=== PATIENT | male | born 1970 | race Caucasian/White ===

== ENCOUNTER 2017-04-27 11:22 | Emergency (ER) | payer MEDICAID, OTHER ==
[~2017-04-27] VITALS: Wt 71.0 kg
[2017-04-27] MEDS ORDERED: ALBUTEROL 0.083% (NEB) 2.5 MG/3 ML AMP INH STA (11:40)
--- NOTE | 2017-04-27 11:58 | ERD ---
ER Documentation Chief Complaint Date/Time DATE: 04/27/17 Chief Complaint Shortness of breath HPI The patient is a 46-year-old male with history of Diabetes Mellitus who presents to the emergency department with complaint of shortness of breath. The patient reports a history of alcoholism and tobacco use, which he stopped approximately 6 years ago. Since, he notes intermittent episodes of shortness of breath that generally lasts 2-3 days. The symptoms tend to resolve on their own. Approximately 3 days ago the patient began to experience recurrent shortness of breath. He denies any chest pain, palpitations, lower extremity edema, calf swelling or calf tenderness. Denies visual changes, diplopia, blurred vision or vision loss. Denies abdominal pain, nausea, vomiting, diaphoresis. Denies headache, dizziness, weakness. Denies any known history of anemia, CHF, COPD, asthma. Denies any associated fevers, rhinorrhea, nasal congestion, cough. Denies any exogenous estrogen or hormonal use. Denies recent travel, recent surgery, prolonged period of immobilization or history of cancer. Denies history of DVT/PE. No other complaints at this time. ROS All systems reviewed and are negative except as per history of present illness. Medications Home Meds Active Scripts Albuterol Sulfate* (Proair HFA*) 8.5 Gm Hfa.aer.ad, 2 PUFF INH Q6H Y for WHEEZING AND SOB, #1 INHALER Prov:KELLY SEVILLA PA-C 04/27/17 Allergies Allergies: Coded Allergies: No Known Allergy (Unverified , 04/27/17) PMhx/Soc Medical and Surgical Hx: pt denies Surgical Hx History of Surgery: No Anesthesia Reaction: No Hx Neurological Disorder: No Hx Respiratory Disorders: No Hx Cardiac Disorders: No Hx Psychiatric Problems: No Hx Miscellaneous Medical Probl: Yes (Diabetes) Hx Alcohol Use: No Hx Substance Use: No Hx Tobacco Use: No Smoking Status: Never smoker Physical Exam Vitals Vital Signs Date Time Temp Pulse Resp B/P Pulse Ox O2 Delivery O2 Flow Rate FiO2 04/27/17 13:49 98.2 80 18 115/68 99 Room Air 04/27/17 12:07 87 18 96 21 04/27/17 11:25 98.5 83 21 143/74 98 Physical Exam GENERAL: Well-developed, well-nourished, in no acute distress HEENT: Head is normocephalic, atraumatic. No scleral pallor or icterus. Pupils equal, round and reactive to light. Extraocular movements intact. Conjunctiva pink. Bilaterally tympanic membranes are clear with no evidence of erythema, effusion or dulling of the light reflex. Moist mucous membranes. No pharyngeal erythema or exudates. Uvula is midline. NECK: Supple. No masses, no tenderness, no lymphadenopathy. Trachea midline. No nuchal rigidity. Full range of motion. RESPIRATORY: Mildly decreased breath sounds at the bases, otherwise clear to auscultation bilaterally. No rales, rhonchi or wheezing. Normal expiratory effort. No accessory muscle use. No tachypnea. No stridor. Speaking in full sentences. In no acute respiratory distress. CARDIOVASCULAR: Regular rate and rhythm. S1 and S2 normal. No murmurs, rubs, or gallops. GASTROINTESTINAL: Abdomen is soft, nontender, and nondistended. BACK: No midline tenderness. EXTREMITIES: No clubbing, cyanosis, or edema. Normal skin perfusion. Full range of motion of both the upper and lower extremities bilaterally. Muscle tone is normal. No focal swelling or erythema. No lower extremity edema. No calf swelling or calf tenderness. Distal pulses are palpable, 2+ bilaterally. Capillary refill is less than 2 seconds. NEUROLOGIC: The patient is alert, awake, and oriented x 3. No focal neurologic deficits. Cranial nerves are grossly intact. Gait is observed and normal. There is no ataxia. Motor normal in all extremities. Sensation grossly intact. INTEGUMENT: Skin is clean, dry and intact. No rashes, lesions or petechiae present. Normal turgor. PSYCHIATRIC: Appropriate; Cooperative. Result Diagram: 04/27/17 1156 04/27/17 1156 Results 24 hrs Laboratory Tests Test 04/27/17 11:56 White Blood Count 9.010^3/ul Red Blood Count 4.3910^6/ul Hemoglobin 14.2g/dl Hematocrit 41.7% Mean Corpuscular Volume 95.0fl Mean Corpuscular Hemoglobin 32.3pg Mean Corpuscular Hemoglobin Concent 34.1g/dl Red Cell Distribution Width 11.8% Platelet Count 16893^3/UL Mean Platelet Volume 10.1fl Neutrophils % 49.5% Lymphocytes % 36.9% Monocytes % 8.0% Eosinophils % 4.7% Basophils % 0.7% Nucleated Red Blood Cells % 0.0/100WBC Neutrophils # 4.410^3/ul Lymphocytes # 3.310^3/ul Monocytes # 0.710^3/ul Eosinophils # 0.410^3/ul Basophils # 0.110^3/ul Nucleated Red Blood Cells # 0.010^3/ul Prothrombin Time 12.4Sec Prothrombin Time Ratio 1.0 INR International Normalized Ratio 0.92 Activated Partial Thromboplast Time 31.1Sec D-Dimer 391.20ng/ml D-Dimer Comment Sodium Level 142mmol/L Potassium Level 4.4mmol/L Chloride Level 102mmol/L Carbon Dioxide Level 28mmol/L Anion Gap 16 Blood Urea Nitrogen 14mg/dl Creatinine 0.98mg/dl Glucose Level 149mg/dl Calcium Level 9.6mg/dl Total Bilirubin 0.4mg/dl Direct Bilirubin 0.00mg/dl Indirect Bilirubin 0.4mg/dl Aspartate Amino Transf (AST/SGOT) 27IU/L Alanine Aminotransferase (ALT/SGPT) 36IU/L Alkaline Phosphatase 110IU/L Troponin I < 0.012ng/ml B-Type Natriuretic Peptide 19PG/ML Total Protein 7.6g/dl Albumin 4.4g/dl Globulin 3.20g/dl Albumin/Globulin Ratio 1.37 Current Medications Medications (Trade) Dose Ordered Sig/Oksana Route PRN Reason Start Time Stop Time Status Last Admin Dose Admin Albuterol (Proventil 0.083% (Neb)) 2.5 mg ONCE STAT INH 04/27/17 11:40 04/27/17 11:42 DC 04/27/17 12:07 Procedures/MDM DIAGNOSTIC TESTS AND INTERPRETATION: EKG Reviewed and interpreted by: Dr. Chapa EKG Interpretation: Normal sinus rhythm, rate 66 bpm, nonspecific ST/T-wave changes, T-wave inversion III PROCEDURE: XR Chest. CLINICAL INDICATION: Shortness of breath TECHNIQUE: Chest AP portable. COMPARISON: No comparison available. FINDINGS: The mediastinal structures are unremarkable. The heart is normal in size and configuration. The pulmonary vascularity is normal. The lung diaz are unremarkable. No consolidation is identified. The pleural spaces are unremarkable. The axial skeleton is unremarkable. IMPRESSION: No active intrathoracic disease. .Enrique Devlin MD, Date Time Electronically viewed and signed by .Enrique Devlin MD, MD on 04/27/2017 12:23 EMERGENCY DEPARTMENT COURSE: The patient was stable throughout the ED course. EKG, chest x-ray and laboratory testing performed. The patient was given an Albuterol breathing treatment by respiratory therapy. On reevaluation, the patient reports no new complaints, but states that he is feeling significantly improved with no current shortness of breath following the treatment. Given resolution, suspect possible reactive airway disease association. MEDICAL DECISION MAKING: This is a 46-year-old male with history of diabetes mellitus and smoking history (who quit 6 years ago) presenting to the emergency department with complaint of shortness of breath. He was placed in a room and monitored. Lung examination revealed mildly decreased breath sounds at the bases, but otherwise, no rales, no rhonchi, no wheezing. He had no nasal flaring , no retractions, no accessory muscle use, no signs of respiratory distress. Chest x-ray performed, with no acute cardiopulmonary abnormalities identified. EKG with no findings of STEMI or acute ischemic changes. Laboratory testing with no anemia, no leukocytosis, no significant electrolyte abnormalities. Troponin and D-dimer negative. The patient is PERC negative. BNP 19. There is currently no clinical indication of pneumonia, pulmonary edema, upper respiratory infection, pneumothorax, sepsis, panic attack, anemia, acute coronary syndrome, pulmonary embolus, metabolic acidosis, congestive heart failure, acute respiratory distress syndrome or any other emergent medical condition. After rest and administration of Albuterol breathing treatment, the patient reports no new complaints, and improved/resolved symptoms. Upon my review and interpretation of the patient's presentation and ER course, I believe the patient's symptoms are most consistent with shortness of breath, uncertain etiology. Shortness of breath may be secondary to a reactive airway disease component, given resolution of symptoms s/p breathing treatment with Albuterol. At this time, the patient is in stable condition and no longer experiencing any shortness of breath and therefore he can be discharged home with a prescription for ProAir HFA and strict return precautions for signs of deteriorating or worsening condition. The patient is advised to follow up with his primary care provider within 2-3 days for reevaluation and further management or return to the ER sooner for any worsening symptoms. I shared my medical decision making and plan with the patient at length and in great detail , and the patient verbally understands and agrees with the plan for further observation and care as an outpatient. At the time of discharge all questions were answered. Departure Diagnosis: Primary Impression: Shortness of breath Condition: Stable Patient Instructions: Dyspnea Additional Instructions: Call your primary care doctor TOMORROW for an appointment during the next 2-3 days.See the doctor sooner or return here if your condition worsens before your appointment time. KELLY SEVILLA PA-C April 27, 2017 11:58
[2017-04-27 12:11] LABS: ADD SCAN DIFF NO
[2017-04-27 12:17] LABS: BASOPHIL # 0.1 10^3/ul (0.0-0.1); BASOPHILS % 0.7 % (0.0-2.0); EOSINOPHILS # 0.4 10^3/ul (0.0-0.5); EOSINOPHILS % 4.7 % (0.0-7.0); HEMATOCRIT 41.7 % (42.0-52.0); HEMOGLOBIN 14.2 g/dl (14.0-18.0); LYMPHOCYTES # 3.3 10^3/ul (0.8-2.9); LYMPHOCYTES % 36.9 % (15.0-51.0); MEAN CORPUSCULAR HEMOGLOBIN 32.3 pg (29.0-33.0); MEAN CORPUSCULAR HGB CONC 34.1 g/dl (32.0-37.0); MEAN PLATELET VOLUME 10.1 fl (7.4-10.4); MONOCYTE # 0.7 10^3/ul (0.3-0.9); NEUTROPHIL # 4.4 10^3/ul (1.6-7.5); NEUTROPHILS % 49.5 % (39.0-77.0); PLATELET COUNT 221 10^3/UL (140-415); RED BLOOD COUNT 4.39 10^6/ul (4.70-6.10); RED CELL DISTRIBUTION WIDTH 11.8 % (11.5-14.5)
--- NOTE | 2017-04-27 12:23 | RADRPT ---
PROCEDURE: XR Chest. CLINICAL INDICATION: Shortness of breath TECHNIQUE: Chest AP portable. COMPARISON: No comparison available. FINDINGS: The mediastinal structures are unremarkable. The heart is normal in size and configuration. The pu lmonary vascularity is normal. The lung diaz are unremarkable. No consolidation is identified. The pleural spaces are unremarkable. The axial skeleton is unremarkable. IMPRESSION: No active intrathoracic disease. RPTAT: HGDB .Enrique Devlin MD, MD Date Time Electronically viewed and signed by .Enrique Devlin MD, on 04/27/2017 12:23 .B/
[2017-04-27 12:42] LABS: INR 0.92; PROTIME 12.4 Sec (12.2-14.2)
[2017-04-27 12:43] LABS: PARTIAL THROMBOPLASTIN TIME 31.1 Sec (25.0-35.0)
[2017-04-27 12:45] LABS: D-DIMER 391.2 ng/ml (<460)
[2017-04-27 12:47] LABS: ALANINE AMINOTRANSFERASE 36 IU/L (13-69); ALBUMIN 4.4 g/dl (3.3-4.9); ALBUMIN/GLOBULIN RATIO 1.37; ALKALINE PHOSPHATASE 110 IU/L (42-121); ANION GAP 16 (8-16); ASPARTATE AMINO TRANSFERASE 27 IU/L (15-46); BILIRUBIN,INDIRECT 0.4 mg/dl (0-1.1); BILIRUBIN,TOTAL 0.4 mg/dl (0.2-1.3); BLOOD UREA NITROGEN 14 mg/dl (7-20); CALCIUM 9.6 mg/dl (8.4-10.2); CARBON DIOXIDE 28 mmol/L (21-31); CHLORIDE 102 mmol/L (97-110); CREATININE 0.98 mg/dl (0.61-1.24); GLUCOSE 149 mg/dl (70-220); POTASSIUM 4.4 mmol/L (3.5-5.1); SODIUM 142 mmol/L (135-144); TOTAL PROTEIN 7.6 g/dl (6.1-8.1)
[2017-04-27 12:56] LABS: B-TYPE NATRIURETIC PEPTIDE 19 PG/ML (0-125)
[2017-04-27 13:15] LABS: TROPONIN-I < 0.012 ng/ml (0.00-0.12)
[2017-04-27] MEDS ORDERED: ALBU8.5H3 INH (13:31)
[2017-04-27 13:49] VITALS: BP 115/68; PULSE 80; RESP 18; TEMP 98.2
== END 2017-04-27 13:50 | disposition home or self-care (01) ==
LOC: FTE 11:22
DX: R06.02 Shortness of breath (principal); E11.9 Type 2 diabetes mellitus without complications; Z87.891 Personal history of nicotine dependence
CPT/HCPCS: 71010; 80053; 83880; 84484; 85025; 85378; 85610; 85730; 94664; Z7502; Z7610

== ENCOUNTER 2018-09-01 12:08 | Emergency (ER) | END 2018-09-01 17:00 | disposition home or self-care (01) ==